=== PATIENT | female | born 1930 | race Caucasian/White ===

== ENCOUNTER 2016-06-28 09:04 | Emergency (ER) | payer MEDICARE, OTHER ==
--- NOTE | ~2016-06-28 | ER ---
PATIENT'S NAME: BATSHEVA CALDERON [facility] AGE: 86 Y [address] ROOM: [place] [address] LOCATION: ED ADMIT DATE: 06/28/2016 ER/Outpatient Report DISCHARGE DATE: 06/28/2016 FAMILY PHYSICIAN: Physician, Unknown ATTENDING PHYSICIAN: Ceferino Allen CHIEF COMPLAINT: Dizziness and weakness. HISTORY OF PRESENT ILLNESS: [facility] when she was found to be unusual this morning. She was less interactive, and when she got up to go to the bathroom, she stated she was extremely dizzy but could not fully elaborate on that. She was less likely to interact according to people at the facility, and she was very pale. She was also shaking intermittently like a shiver but was otherwise normal. The spells of shaking are very unusual according to the provider, who is with her today as well as the family. No other interventions. Exact time of onset is unknown. PAST MEDICAL HISTORY: Documented on the record and reviewed by me. SOCIAL HISTORY: Documented on the record and reviewed by me. MEDICATIONS: Documented on the record and reviewed by me. ALLERGIES: DOCUMENTED ON THE RECORD AND REVIEWED BY ME. REVIEW OF SYSTEMS: All systems reviewed and negative except as noted in the HPI. PHYSICAL EXAMINATION: VITAL SIGNS: Blood pressure 138/76, pulse 65, respiratory rate is 18, temp 97.5, SpO2 is 99% on room air. Pain is 0/10. GENERAL: An age appropriate female, in no obvious pain or distress. Resting comfortably on exam table. NEURO: The patient is awake. She is oriented to person, but not to date, time, or situation. She is conversant with no speech impediments. She has some difficulty with rapid alternating movements, that are symmetric. No obvious gross motor abnormalities. Initially, she had some episodes, that appeared to be shivers, which did resolve after she was given a couple of warm blankets. No obvious abnormalities on exam. No abnormal reflexes appreciated PATIENT'S NAME: BATSHEVA CALDERON [facility] AGE: 86 Y [address] ROOM: [place] [address] LOCATION: [facility] ADMIT DATE: 06/28/2016 ER/Outpatient Report DISCHARGE DATE: 06/28/2016 FAMILY PHYSICIAN: Physician, Unknown ATTENDING PHYSICIAN: Ceferino Allen and no gross sensory deficits. HEENT: Normocephalic, atraumatic. The eyes are PERRL. The oropharynx is clear. NECK: Supple. Trachea is midline. CHEST: Heart is regular rate and rhythm with no murmurs. LUNGS: Clear to auscultation bilateral with no rhonchi, wheezes, or rales. ABDOMEN: Soft, nontender, and nondistended. No rebound or guarding. BACK: Nontender to palpation throughout. No CVA tenderness. EXTREMITIES: Warm and well perfused. There is marked deformity of the toes bilateral with no evidence of skin breakdown, and it does not appear to be acute, and she is not particularly painful. SKIN: Warm, dry, and intact with normal color throughout. LABORATORY DATA AND X-RAYS: CT of the head was without bleeding, MRIs without stroke according to Radiology. Chest x-ray is unremarkable per my read. EKG today is grossly unchanged compared to prior EKG from 03/31/2013. No significant morphologic changes other than PAC. The patient has no significant changes with repeat EKG. Labs, urinalysis with no leukocytes, nitrites, and negative micro. WBC 7.7, hemoglobin 12.0, platelets of 282. INR is 1.4. Serum lactate is 2.7, procalcitonin is below threshold. Sodium 139, potassium 3.8, chloride 105, CO2 of 24, BUN is 12, creatinine is 1.0, GFR is 53. LFTs are grossly normal. Free T4 is 1.4. TSH is 3.9. CPK is 72. On repeat, 0.8 CK-MB and troponin remains below threshold. No significant change from initial labs. IMPRESSION: 1. Dizziness, possible presyncope. 2. Lactic acidemia. 3. Elevated TSH. EMERGENCY DEPARTMENT COURSE: The patient is evaluated as above. No significant abnormalities on initial exam. Head CT rules out intracranial hemorrhage. EKG with no significant dysrhythmia, no elevation of troponin on serial exams. No EKG changes. Not consistent with pneumonia or UTI. Based on her dizziness and dementia and inability to further delineate the exact character what is going on, I did obtain the MRI. No acute strokes per Radiology. She was given a liter of fluid to help treat her lactic acidemia, and the patient felt much better. After completion of fluids, the caregiver, who is with her significantly throughout her time, states that she felt like the patient was at her baseline. I spoke with the son both over the phone prior to the MRI to obtain permission as well as in the emergency department as he did arrive for same. He felt like she was back to her normal. I am encouraging the patient to drink more. [facility]. Recommend no significant changes other than increase fluids. She should PATIENT'S NAME: BATSHEVA CALDERON [facility] AGE: 86 Y [address] ROOM: [place], [place] [address] LOCATION: [facility] ADMIT DATE: 06/28/2016 ER/Outpatient Report DISCHARGE DATE: 06/28/2016 FAMILY PHYSICIAN: Essie Iraheta ATTENDING PHYSICIAN: Ceferino Allen return immediately if there are any other concerns or questions. MD RODOLFO TINOCO/robbie /[id number] d: 06/28/16 2229 t: 06/29/16 1054, OUTPATIENT REPORT
[2016-06-28 09:35] LABS: BASOPHIL # 0.1 K/uL (0.0-0.2); BASOPHIL % 0.7 %; EOSINOPHIL # 0.1 K/uL (0.0-0.5); EOSINOPHIL % 1.3 %; HEMATOCRIT 36.9 % (30.0-46.0); IMMATURE GRANULOCYTE % 0.5 %; LYMPHOCYTE # 1.3 K/uL (0.8-4.0); LYMPHOCYTE % 17.2 %; MCH 29.6 pg (27.0-34.0); MCHC 32.5 gm/dL (32.0-36.5); MCV 91.1 fl (83.0-98.0); MONOCYTE # 0.7 K/uL (0.0-1.0); MONOCYTE % 8.5 %; MPV 10.1 fl (9.4-12.4); NEUTROPHIL # (ANC) 5.5 K/uL (1.8-7.8); NEUTROPHIL % 71.8 %; NRBC % 0 /100WBC (0-0.00); PLATELET COUNT 282 K/uL (150-450); RBC 4.05 M/uL (3.00-5.00); WBC 7.7 K/uL (4.0-11.0)
[2016-06-28 09:43] LABS: INR - (THERAPEUTIC) 1.4 (0.9-1.1); PROTIME 14.7 SECONDS (9.6-11.1); PTT 32 SECONDS (25-32)
[2016-06-28 09:55] LABS: BILIRUBIN URINE NEGATIVE (NEGATIVE); BLOOD URINE NEGATIVE /UL (NEGATIVE); COLOR URINE YELLOW (YELLOW); GLUCOSE URINE NEGATIVE (NEGATIVE); KETONE URINE NEGATIVE (NEGATIVE); LEUKOCYTES URINE NEGATIVE /UL (NEGATIVE); NITRITE URINE NEGATIVE (NEGATIVE); PROTEIN URINE 15 mg/dL (NEGATIVE); TURBIDITY URINE CLEAR (CLEAR); UROBILINOGEN URINE NORMAL (NORMAL)
[2016-06-28 10:01] LABS: BACTERIA URINE NEGATIVE (NEGATIVE); EPITHELIAL URINE NEGATIVE #/HPF (NEGATIVE); MUCUS URINE 2+ (NEGATIVE); RBC URINE NEGATIVE #/HPF (NEGATIVE); WBC URINE NEGATIVE #/HPF (NEGATIVE)
[2016-06-28 10:02] LABS: ALBUMIN 2.9 gm/dL (3.5-5.0); ALK PHOS 62 IU/L (33-138); ALT 17 IU/L (12-78); ANION GAP 13.8 (10.0-19.0); AST 16 IU/L (10-40); BLOOD UREA NITROGEN 12 mg/dL (6-24); CALCIUM 8.6 mg/dL (8.5-10.5); CHLORIDE 105 mMol/L (96-110); CO2 24 mMol/L (22-32); ESTIMATED GFR (MDRD EQUATION) 53; POTASSIUM 3.8 mMol/L (3.7-5.1); SODIUM 139 mMol/L (135-145); TOTAL BILIRUBIN 0.5 mg/dL (0.0-1.5); TOTAL PROTEIN 6.1 g/dL (6.0-8.4)
[2016-06-28 13:46] LABS: CPK 72 IU/L (21-215)
== END 2016-06-28 14:00 | disposition disaster alternative care site (69) ==
LOC: GMED 09:04
PROVIDERS: Emergency Medicine
PROC: 0T9B70Z Drainage of Bladder with Drainage Device, Via Natural or Artificial Opening (ICD-10-PCS; principal; 2016-06-28)
DX: E87.2 Acidosis (principal); R42 Dizziness and giddiness; R94.6 Abnormal results of thyroid function studies; Z79.01 Long term (current) use of anticoagulants
CPT/HCPCS: J7030

== ENCOUNTER → 2016-06-28 | Outpatient (CLI) | payer MEDICARE, OTHER ==
[~2016-06-28] MED LIST: ARICEPT10 M1 PO; CELEXA20 MG PO; CELEXA40 MG PO; CLARITIN10 MG PO; CLEOCIN150 MG PO; COZAAR25 MG PO; DEMADEX10 MG PO; FISH OIL 1,0001 EAC4 PO; NAMENDA10 MG PO; PAIN RELIEF325 MG PO; PRILOSEC20 M1 PO; QUESTRAN PO; THERAGRAN-M1 TAB PO; VICODIN PO; XARELTO15 MG PO
== END | disposition disaster alternative care site (69) ==
LOC: GAMB 08:42
DX: R53.1 Weakness (principal); R42 Dizziness and giddiness; F03.90 Unspecified dementia, unspecified severity, without behavioral disturbance, psychotic disturbance, mood disturbance, and anxiety; I10 Essential (primary) hypertension; Z79.2 Long term (current) use of antibiotics; Z79.899 Other long term (current) drug therapy
CPT/HCPCS: A0425; A0427